=== PATIENT | female | born 2000 | race Caucasian/White ===

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

== ENCOUNTER → 2021-01-21 | Outpatient (CLI) | payer OTHER, SELFPAY ==
[2021-01-24 05:07] LABS: Chlamydia By Nucleic Acid AMP Negative (Negative)
[2021-01-24 08:10] LABS: Gonococcus By Nucleic Acid AMP Negative (Negative)
== END | disposition home or self-care (01) ==
LOC: LABSPEC 12:23
PROVIDERS: Visit Provider Obstetrics & Gynecology
DX: Z11.3 Encounter for screening for infections with a predominantly sexual mode of transmission (principal)
CPT/HCPCS: 87491; 87591

== ENCOUNTER → 2021-03-16 12:00 | Outpatient (CLI) | payer OTHER, SELFPAY ==
[2021-03-16 14:02] LABS: HIV - WCH Non-Reactive (Nonreactive); Syphilis Antibodies Non-reactive
[2021-03-18 00:07] LABS: Chlamydia By Nucleic Acid AMP Negative (Negative)
[2021-03-18 09:11] LABS: Gonococcus By Nucleic Acid AMP Negative (Negative)
== END ==
LOC: WOBLAB 12:01
PROVIDERS: Visit Provider Obstetrics & Gynecology
DX: Z11.3 Encounter for screening for infections with a predominantly sexual mode of transmission (principal)
CPT/HCPCS: 36415; 86703; 86780; 87491; 87591